=== PATIENT | female | born 1980 | race Caucasian/White ===

== ENCOUNTER 2024-07-10 16:46 | Emergency (ER) | payer BC, SELFPAY ==
[2024-07-10 16:48] VITALS: BP 155/93; PULSE 110; RESP 18; TEMP 36.2; O2SAT 99; BMI 27.9
--- NOTE | 2024-07-10 17:34 | ED.VIS.GI ---
HPI HPI - GI History of Present Illness Chief Complaint: Constipation Informant: patient Abdominal Pain/Flank Pain Onset: Weeks (3) Context: Gradual Onset Timing: Continuous Quality: Aching and Cramping Location: RLQ, LLQ and - (Rectum) Worsened by: - (Laying on her back) Relieved by: Nothing Nausea/Vomiting/Emesis GI Symptom: Positive for Nausea; Negative for Vomiting Diarrhea/Melena/Hematochezia GI Symptom: Negative for Diarrhea, Melena or Hematochezia Associated Symptoms Associated Symptoms: Negative for Dysuria, Frequency or Hematuria Narrative Narrative: Patient admits to some constipation that has been constant for the past 3 weeks. Patient states she feels like there is an impaction. Patient admits to some cramping and aching over her lower abdomen and rectum. Patient states it is worse over the rectum. Patient states it is worse when she lays on her back. Patient states nothing seems to help with it. Patient has tried multiple [id number] laxatives with no relief. Patient admits to some occasional nausea. Patient denies any fevers or chills. PFSH PFSH Medical History no medical history no medical history Allergy/AdvReac Type Severity Reaction Status Date / Time No Known Allergies Allergy Verified 07/10/24 16:48 Surgical History no surgical history no surgical history Social History Smoking Status: Never smoker ROS ROS ED Constitutional Constitutional ED: Denies chills or fever(s) Eyes Eyes: Denies blurry vision or change in vision ENT ENT ED: Denies rhinorrhea or sore throat Cardiovascular Cardiovascular: Denies chest pain or palpitations Respiratory/Chest Respiratory/Chest: Denies cough or dyspnea Gastrointestinal Gastrointestinal: Reports abdominal pain, constipation and nausea; Denies vomiting Genitourinary Genitourinary ED: Denies dysuria or hematuria Musculoskeletal Musculoskeletal: Reports back pain; Denies neck pain Integumentary Denies abscess or rash Neurologic Neurologic: Denies headache(s) or weakness Allergic/Immunologic Allergic/Immunologic ED: Denies mouth swelling or urticaria EXAM Physical Exam Const Vital Signs: 07/10/24 16:48 07/10/24 19:32 07/10/24 20:08 Temperature 97.1 F L 98.8 F Temperature Source Temporal Oral Pulse Rate 110 H 88 Respiratory Rate 18 15 18 Blood Pressure 155/93 H 150/90 H Blood Pressure Mean 113 110 Pulse Ox 99 99 Oxygen Delivery Method Room Air Room Air Positive well nourished and well developed General Appearance ED: well developed and NAD HEENT Reports moist mucous membranes Neck supple and no JVD Resp normal respiratory effort and clear to auscultation bilaterally Cardio regular rate and regular rhythm GI non-tender and non-distended Palpation: soft Extremity full ROM Neuro CN's II-XII intact bilaterally, moves all extremities and no sensory deficits noted Sensorium / Orientation: alert Motor Exam: strength 5/5 throughout Psych mental status grossly normal and thought process normal MDM MDM MDM Narrative Medical decision making narrative: Patient was given a soapsuds enema here. Patient had some liquid stool with this. KUB x-ray was obtained to assess for bowel obstruction and constipation. Radiography Diagnostic Testing: Clinical Impression(s) from Imaging Studies KUB X-Ray 07/10/24 20:28 IMPRESSION: Moderate fecal retention. Possible fecal impaction in the rectosigmoid. Electronically Signed: Zeus Hawthorne MD at 20:45 EST , KUB was obtained. There is 2 views. On my independent interpretation, there is no evidence of obstruction. There is moderate stool throughout the entire colon. Radiologist also interpreted the x-rays and agrees. Treatment and Re-Evaluation :: Patient was feeling better on reevaluation. Patient was advised of her findings. Patient was instructed to use Colace. Patient was instructed to use MiraLAX. Patient was instructed to eat a high-fiber diet. Patient was instructed to follow-up with her primary care physician in 5 to 7 days. Patient was instructed return if worse in any way. Patient understood and was agreeable with the plan. All questions were answered. Discharge Plan Triage Chief Complaint: Constipation ED Provider: Avery Arenas Dx/Rx/DC Orders Clinical Impression: Constipation, Elevated blood pressure reading Instructions: Eating a High-Fiber Diet, ED Constipation (Adult) Primary Care Provider: Care Physician,No Primary Referrals: Breann Newton MD [Med Staff - [employer]key Ride Operator] - 5-7 Days Care Physician,No Primary [Primary Care Provider] - Activity Restrictions/Additional Instructions: Use [id number] MiraLAX as needed for constipation. Use Colace as a stool softener. Eat a high-fiber diet. Drink plenty of fluids. Print Language: Palauan Disposition Disposition: Home, Self Care
[2024-07-10 19:32] VITALS: RESP 15
[2024-07-10 20:08] VITALS: BP 150/90; PULSE 88; RESP 18; TEMP 37.1; O2SAT 99
--- NOTE | 2024-07-10 20:28 | RAD_ITS ---
STUDY: X-RAY - ABDOMEN/PELVIS REASON FOR EXAM: Female, 43 years old. Constipation TECHNIQUE: Single AP view of the abdomen / pelvis. COMPARISON: None. FINDINGS: Normal visualized lung bases. There is moderate fecal retention. Possible fecal impaction in the rectosigmoid. Otherwise unremarkable bowel gas pattern. There is no demonstrated free abdominal air. The visualized liver, spleen and kidneys are grossly normal in size and morphology. Normal soft tissue structures. Normal visualized osseous structures. RAD/Abdomen Single View IMPRESSION: Moderate fecal retention. Possible fecal impaction in the rectosigmoid. Electronically Signed: Zeus Hawthorne MD at 20:45 EST ,
[2024-07-10 21:19] VITALS: RESP 18
== END 2024-07-10 21:21 | disposition home or self-care (01) ==
PROVIDERS: Emergency Provider Emergency Medicine; Visit Provider Emergency Medicine
DX: K59.00 Constipation, unspecified (principal); R03.0 Elevated blood-pressure reading, without diagnosis of hypertension; R11.0 Nausea
CPT/HCPCS: 74018; 99284